=== PATIENT | male | born 1945 | race Caucasian/White ===

== ENCOUNTER 2020-02-29 11:28 | Emergency (ER) | payer OTHER, SELFPAY ==
[2020-02-29 11:35] VITALS: BP 138/100; PULSE 95; RESP 18; TEMP 36.8; O2SAT 98
[2020-02-29 11:59] LABS: Glucose Point of Care 482 (65-105)
--- NOTE | 2020-02-29 11:59 | ED.GENADULT ---
HPI - General Adult General Chief complaint: Recheck/Abnormal Lab/Rx Stated complaint: elevated blood sugar Time Seen by Provider: 02/29/20 11:32 Source: RN notes reviewed History of Present Illness HPI narrative: Patient presents emergency department from home for blood sugar. Patient states he does not have a history of diabetes. He had gone to see his knockout machine operator yesterday and blood work been drawn that showed an elevated blood sugar over 500. He was called and instructed come to ED for further evaluation. Patient denies any symptoms he denies any fevers or chills chest pain shortness of breath abdominal pain nausea vomiting he does note that he has had some increased thirst Related Data Home Medications Medication Instructions Recorded Confirmed amlodipine 02/29/20 atorvastatin 02/29/20 fenofibrate mg 02/29/20 hydrochlorothiazide 02/29/20 icosapent ethyl [Vascepa] g PO 02/29/20 lisinopril 02/29/20 metoprolol succinate PO 02/29/20 02/29/20 Allergies Allergy/AdvReac Type Severity Reaction Status Date / Time No Known Allergies Allergy Verified 02/29/20 11:45 Review of Systems Review of Systems: Narrative: Gen.: Denies fevers or chills ENT: Denies congestion Respiratory: Denies shortness of breath or cough CV: Denies chest pain or palpitations GI: Denies abdominal pain nausea, emesis or diarrhea denies burning, urgency, frequency or hematuria Musculoskeletal: Denies back pain or muscle pain Neuro: Denies numbness, tingling, weakness or focal weakness Skin: Denies rash Except as documented, all other systems reviewed and negative [facility] Past Medical History Medical History (Updated 02/29/20 @ 14:44 by Anthony Esteves DO) Coronary artery disease Family History Family History (Updated 11/09/15 @ 23:19 by DOCTOR UNKNOWN) Father Family history of diabetes mellitus in first degree relative Mother Family history of diabetes mellitus in first degree relative Sibling Family history of diabetes mellitus in first degree relative Social History Social History Smoking status: Former smoker Second hand tobacco smoke exposure: No Smoking end date: 04/13/06 Alcohol intake: current Gender identity (if verbalized by the patient): Male Exam Narrative: Exam Narrative: APPEARANCE: No acute distress, nontoxic, resting in bed EYES: EOMI HEENT: Normocephalic, atraumatic, OMM RESPIRATORY: No respiratory distress Clear to auscultation bilaterally with no rhonchi wheezing or rales. CARDIOVASCULAR: Regular rate and rhythm without murmurs rubs or gallops. ABDOMINAL: Soft, nontender, nondistended, no rebound or guarding MUSCULOSKELETAl: Moves all extremities. No clubbing, cyanosis or edema. NEURO: Awake and alert. Following commands, speech normal, no focal deficits SKIN:: Warm, dry. No rashes lesions or abrasions PSYCHIATRIC: Normal affect/mood, Course Course Emergency Course: Patient states he has an appointment scheduled with Dr. Gruber tomorrow Called discussed Dr. Gruber presentation and work-up. Discussed appointment tomorrow. This time request patient receive Metformin 1000 mg XR at this time and will recheck tomorrow in right further prescriptions Discussed with patient results of workup and diagnosis. Discussed need for follow-up with primary care, proper use of medication, and reasons to return to the emergency department. Patient understands and agrees to current treatment plan Vital Signs Vital signs: Vital Signs Temperature 98.2 F 02/29/20 11:35 Pulse Rate 95 02/29/20 11:35 Respiratory Rate 18 02/29/20 11:35 Blood Pressure 138/100 H 02/29/20 11:35 Pulse Oximetry 98 02/29/20 11:35 Temperature 98.2 F 02/29/20 11:35 Pulse Rate 78 02/29/20 14:41 Respiratory Rate 16 02/29/20 14:41 Blood Pressure 142/88 H 02/29/20 14:41 Pulse Oximetry 98 02/29/20 14:41 Medical Decision Making Vital S
[2020-02-29 12:04] LABS: Basophils Absolute Auto 0.1 K/mm3 (0.0-0.1); Basophils Percent Auto 0.6 % (0.2-1.2); Eosinophils Absolute Auto 0.2 K/mm3 (0-0.3); Hematocrit 43.2 % (42.0-52.0); Hemoglobin 14.8 g/dL (14.0-18.0); Immature Granulocyte Absolute 0.05 K/mm3 (0.00-0.031); Immature Granulocyte Percent A 0.6 % (0-0.5); Lymphocytes Absolute Auto 1.81 K/mm3 (0.9-3.2); Lymphocytes Percent Auto 22.7 % (18.3-44.2); Mean Corpuscular HGB Conc 34.3 g/dl (32-36); Mean Corpuscular Hemoglobin 29.2 pg (26-34); Mean Corpuscular Volume 85.2 fl (80-100); Monocytes Absolute Auto 0.4 K/mm3 (0.1-0.6); Neutrophils Absolute Auto 5.5 K/mm3 (1.3-6.7); Neutrophils Percent Auto 69.1 % (45.5-73.1); Platelet Count Result 234 k/mm3 (150-375); Red Blood Count 5.07 M/mm3 (4.6-6.20); Red Cell Distribution Width 13.4 % (11.5-14.5)
[2020-02-29 12:07] LABS: Add Urine Microscopic? YES; Appearance Urine Clear (Clear); Bilirubin Urine Negative (Negative); Blood Urine Negative (Negative); Color Urine Yellow (Yellow); Glucose Urine UA 3+ mg/dL (Negative); Ketones Urine Negative (Negative); Leukocyte Esterase Ur Negative LEU/UL (Negative); Mucus Urine Rare /lpf; Nitrate Urine Negative (Negative); Protein Urine Negative (Negative); RBC Urine 0-2 /hpf (0-2); WBC Urine 0-3 /hpf
[2020-02-29 12:15] LABS: Specific Grav Ur 1.035 (1.001-1.035)
[2020-02-29 12:16] LABS: Alanine Aminotransferase 57 U/L (4-50); Albumin Level 4.4 g/dL (3.5-5.1); Alkaline Phosphatase 98 U/L (38-126); Anion Gap 11 mmol/L (8-16); Aspartate Amino Transferase 61 U/L (17-59); Bilirubin,Total 0.8 mg/dL (0.2-1.3); Blood Urea Nitrogen 21 mg/dL (9-20); Calcium 9.4 mg/dL (8.4-10.2); Carbon Dioxide 29 mmol/L (22-30); Chloride 94 mmol/L (98-107); Estimated CRCL calculation 51 ml/min; Estimated Glomerular Filt Rate 59; Glucose 467 mg/dL (75-110); Potassium 4.2 mmol/L (3.4-5.0); Sodium 134 mmol/L (137-145)
[2020-02-29 12:20] LABS: Hemoglobin A1C > 14.0 % (<5.7)
[2020-02-29] MEDS: SODIUM CHLORIDE 0.9% IV 1,000 ML 999 ML IV CONT (12:48)
[2020-02-29 14:24] LABS: Glucose Point of Care 375 (65-105)
[2020-02-29 14:41] VITALS: BP 142/88; PULSE 78; RESP 16; O2SAT 98
[2020-02-29] MEDS: metFORMIN HCL XR 500 MG TAB.SR.24H 1000 MG PO (15:42)
== END 2020-02-29 15:44 | disposition home or self-care (01) ==
PROVIDERS: Emergency Provider Emergency Medicine; PCP Family Medicine
DX: R73.9 Hyperglycemia, unspecified (principal); I25.10 Atherosclerotic heart disease of native coronary artery without angina pectoris
CPT/HCPCS: 36415; 80053; 81001; 82948; 83036; 85025; 96360; 96361; 99283; A9270; J7030

== ENCOUNTER 2022-06-02 09:07 | Outpatient (CLI) | payer OTHER, SELFPAY ==
[2022-06-03 11:06] LABS: Kit Draw Collected
== END 2022-06-02 09:08 | disposition home or self-care (01) ==
LOC: ANHGOSHLAB 09:09
PROVIDERS: PCP Family Medicine; Visit Provider Nurse Practitioner Family
DX: E11.9 Type 2 diabetes mellitus without complications (principal); Z12.5 Encounter for screening for malignant neoplasm of prostate; I10 Essential (primary) hypertension; E78.5 Hyperlipidemia, unspecified
CPT/HCPCS: 36415

== ENCOUNTER 2022-07-14 08:58 | Outpatient (CLI) | payer OTHER, SELFPAY ==
--- NOTE | ~2022-07-14 | US_ITS ---
EXAMINATION: US carotid duplex BI DATE: 07/14/2022 09:38 INDICATION: Left carotid bruit. TECHNIQUE: Grayscale, color Doppler, and pulsed Doppler images of the cervical carotid arteries were obtained. The degree of vessel stenosis is placed in one of the following categories: normal, <50%, 5 0-69%, >=70% but less than near-occlusion, near-occlusion, or total occlusion. Note that percent sten osis relative to normal distal artery lumen diameter is indirectly measured from velocity measurement s as described by Cooper, et al. Radiology 2003; 229:340-346. COMPARISON: None. FINDINGS: RIGHT: The right common carotid artery (CCA) peak systolic velocity (PSV) is 102 cm/s. The right internal ca rotid artery (ICA) PSV is 97 cm/s. The right ICA end-diastolic velocity (EDV) is 21 cm/s. The right I CA/CCA PSV ratio is 1.0. Grayscale and color Doppler images yield an estimate of <50% diameter reduct ion from plaque in the ICA. There is antegrade flow in the right vertebral artery. LEFT: The left CCA PSV is 107 cm/s. The left ICA PSV is 491 cm/s. The left ICA EDV is 55 cm/s. The left ICA /CCA PSV ratio is 4.6. Grayscale and color Doppler images yield an estimate of >=50% diameter reducti on from plaque in the ICA. There is antegrade flow in the left vertebral artery. IMPRESSION: 1. <50% stenosis in the right internal carotid artery. 2. >=70% stenosis in the left internal carotid artery, but less than near occlusion. Reviewed, dictated and finalized at location D. IMPRESSION: 1. <50% stenosis in the right internal carotid artery. 2. >=70% stenosis in the left internal carotid artery, but less than near occlu nemo.
== END 2022-07-14 08:59 | disposition home or self-care (01) ==
PROVIDERS: PCP Family Medicine; Visit Provider Internal Medicine Cardiovascular Disease
DX: R09.89 Other specified symptoms and signs involving the circulatory and respiratory systems (principal); I65.23 Occlusion and stenosis of bilateral carotid arteries
CPT/HCPCS: 93880

== ENCOUNTER 2022-12-01 09:07 | Outpatient (CLI) | payer OTHER, SELFPAY ==
[2022-12-01 11:43] LABS: Basophils Absolute Auto 0.1 K/mm3 (0.0-0.1); Basophils Percent Auto 0.8 % (0.2-1.2); Eosinophils Absolute Auto 0.2 K/mm3 (0-0.3); Eosinophils Percent Auto 2.6 % (0-4.4); Hemoglobin 14.2 g/dL (14.0-18.0); Immature Granulocyte Absolute 0.03 K/mm3 (0.00-0.031); Immature Granulocyte Percent A 0.3 % (0-0.5); Lymphocytes Absolute Auto 1.55 K/mm3 (0.9-3.2); Lymphocytes Percent Auto 17.9 % (18.3-44.2); Mean Corpuscular HGB Conc 31.6 g/dl (32-36); Mean Corpuscular Hemoglobin 27.8 pg (26-34); Mean Corpuscular Volume 88.1 fl (80-100); Mean Platelet Volume 10.4 fl (7.4-10.4); Monocytes Absolute Auto 0.6 K/mm3 (0.1-0.6); Monocytes Percent Auto 7.3 % (2.6-8.5); Neutrophils Absolute Auto 6.2 K/mm3 (1.3-6.7); Neutrophils Percent Auto 71.1 % (45.5-73.1); Platelet Count Result 237 k/mm3 (150-375); Red Blood Count 5.11 M/mm3 (4.6-6.20); Red Cell Distribution Width 13.4 % (11.5-14.5); White Blood Count 8.7 K/mm3 (4.5-10.0)
[2022-12-01 11:54] LABS: Alanine Aminotransferase 41 U/L (6-50); Albumin Level 4.2 g/dL (3.5-5.1); Alkaline Phosphatase 52 U/L (38-126); Anion Gap 4 mmol/L (8-16); Aspartate Amino Transferase 41 U/L (17-59); Bilirubin,Total 0.7 mg/dL (0.2-1.3); Blood Urea Nitrogen 22 mg/dL (9-20); Calcium 9.6 mg/dL (8.4-10.2); Carbon Dioxide 32 mmol/L (22-30); Chloride 100 mmol/L (98-107); Cholesterol 138 mg/dL (0-200); Estimated Glomerular Filt Rate 39; Glucose 127 mg/dL (65-110); HDL Direct 32 mg/dL; Potassium 4.4 mmol/L (3.4-5.0); Sodium 136 mmol/L (137-145); Triglycerides 165 mg/dL (<150)
[2022-12-01 12:05] LABS: Vitamin D 25 Hydroxy 52.5 ng/mL
[2022-12-01 12:09] LABS: LDL Cholesterol Direct 76 mg/dL
[2022-12-01 12:21] LABS: Hemoglobin A1C 6.2 % (<5.7)
== END 2022-12-01 09:08 | disposition home or self-care (01) ==
LOC: ANHGOSHLAB 09:09
PROVIDERS: PCP Family Medicine; Visit Provider Nurse Practitioner Family
DX: Z13.220 Encounter for screening for lipoid disorders (principal); Z13.21 Encounter for screening for nutritional disorder; I10 Essential (primary) hypertension; Z13.29 Encounter for screening for other suspected endocrine disorder; Z13.1 Encounter for screening for diabetes mellitus; Z00.00 Encounter for general adult medical examination without abnormal findings
CPT/HCPCS: 36415; 80053; 80061; 82306; 83036; 84443; 85025

== ENCOUNTER 2023-08-25 10:57 | Outpatient (CLI) | payer OTHER, SELFPAY ==
--- NOTE | ~2023-08-25 | US_ITS ---
EXAMINATION: US carotid duplex BI DATE: 08/25/2023 12:03 INDICATION: Left carotid stenosis TECHNIQUE: Grayscale, color Doppler, and pulsed Doppler images of the cervical carotid arteries were obtained. The degree of vessel stenosis is placed in one of the following categories: normal, <50%, 5 0-69%, >=70% but less than near-occlusion, near-occlusion, or total occlusion. Note that percent sten osis relative to normal distal artery lumen diameter is indirectly measured from velocity measurement s as described by Cooper, et al. Radiology 2003; 229:340-346. COMPARISON: 07/14/2022 FINDINGS: RIGHT: The right common carotid artery (CCA) peak systolic velocity (PSV) is 73 cm/s. The right internal car otid artery (ICA) PSV is 115 cm/s. The right ICA end-diastolic velocity (EDV) is 20 cm/s. The right I CA/CCA PSV ratio is 1.6. Grayscale and color Doppler images yield an estimate of <50% diameter reduct ion from plaque in the ICA. The external carotid artery (ECA) PSV is 206 cm/s. There is antegrade zion w in the right vertebral artery. LEFT: The left CCA PSV is 52 cm/s. The left ICA PSV is 475 cm/s. The left ICA EDV is 73 cm/s. The left ICA/ CCA PSV ratio is 9.1. Grayscale and color Doppler images yield an estimate of >=70% (but less than ne ar occlusion) diameter reduction from plaque in the ICA. The ECA PSV is 136 cm/s. There is antegrade flow in the left vertebral artery. IMPRESSION: 1. <50% stenosis in the right internal carotid artery. 2. >=70% (but less than near occlusion) stenosis in the left internal carotid artery. Reviewed, dictated and finalized at location B. IMPRESSION: 1. <50% stenosis in the right internal carotid artery. 2. >=70% (but less than near occlusion) stenosis in the left internal carotid a rtery.
== END 2023-08-25 10:58 | disposition home or self-care (01) ==
PROVIDERS: PCP Family Medicine; Visit Provider Internal Medicine Cardiovascular Disease
DX: I65.23 Occlusion and stenosis of bilateral carotid arteries (principal)
CPT/HCPCS: 93880

== ENCOUNTER 2024-01-20 08:38 | Outpatient (CLI) | payer OTHER, SELFPAY ==
[2024-01-20 16:49] LABS: Alanine Aminotransferase 52 U/L (6-50); Albumin Level 4.3 g/dL (3.5-5.1); Alkaline Phosphatase 53 U/L (38-126); Anion Gap 7 mmol/L (4-12); Aspartate Amino Transferase 47 U/L (17-59); Bilirubin,Total 0.7 mg/dL (0.2-1.3); Blood Urea Nitrogen 37 mg/dL (9-20); Calcium 9.7 mg/dL (8.4-10.2); Carbon Dioxide 31 mmol/L (22-30); Chloride 100 mmol/L (98-107); Cholesterol 164 mg/dL (0-200); Estimated Glomerular Filt Rate 31; Glucose 162 mg/dL (65-110); HDL Direct 31 mg/dL; Potassium 4.4 mmol/L (3.4-5.0); Sodium 138 mmol/L (137-145); Triglycerides 269 mg/dL (<150)
[2024-01-20 17:00] LABS: LDL Cholesterol Direct 77 mg/dL
[2024-01-20 17:05] LABS: Basophils Absolute Auto 0.1 K/mm3 (0.0-0.1); Basophils Percent Auto 0.8 % (0.2-1.2); Eosinophils Absolute Auto 0.3 K/mm3 (0-0.3); Eosinophils Percent Auto 4.3 % (0-4.4); Hematocrit 42.7 % (42.0-52.0); Hemoglobin 13.6 g/dL (14.0-18.0); Immature Granulocyte Absolute 0.05 K/mm3 (0.00-0.031); Immature Granulocyte Percent A 0.6 % (0-0.5); Lymphocytes Absolute Auto 1.73 K/mm3 (0.9-3.2); Lymphocytes Percent Auto 21.9 % (18.3-44.2); Mean Corpuscular HGB Conc 31.9 g/dl (32-36); Mean Corpuscular Hemoglobin 29.1 pg (26-34); Mean Corpuscular Volume 91.4 fl (80-100); Mean Platelet Volume 10.4 fl (7.4-10.4); Monocytes Absolute Auto 0.6 K/mm3 (0.1-0.6); Monocytes Percent Auto 7.1 % (2.6-8.5); Neutrophils Absolute Auto 5.2 K/mm3 (1.3-6.7); Neutrophils Percent Auto 65.3 % (45.5-73.1); Platelet Count Result 224 k/mm3 (150-375); Red Blood Count 4.67 M/mm3 (4.6-6.20); White Blood Count 7.9 K/mm3 (4.5-10.0)
[2024-01-20 17:15] LABS: Vitamin D 25 Hydroxy 53.7 ng/mL
[2024-01-20 17:17] LABS: Prostate Specific Antigen 4.2 ng/mL (< OR = 4.0)
[2024-01-20 17:18] LABS: Creatinine Urine 119.4 mg/dL
[2024-01-20 17:36] LABS: Hemoglobin A1C 7.1 % (<5.7)
[2024-01-20 17:39] LABS: MALB Creatinine Ratio 326.9 mg/g (0-30); Microalbumin Urine Random 390.3 mg/L (0-16.7)
[2024-01-20 20:50] LABS: Total Triiodothyronine (T3) 1.38 NG/ML (0.97-1.69)
== END 2024-01-20 08:39 | disposition home or self-care (01) ==
LOC: ANHGOSHLAB 08:39
PROVIDERS: PCP Family Medicine; Visit Provider Nurse Practitioner Family
DX: Z12.5 Encounter for screening for malignant neoplasm of prostate (principal); E78.5 Hyperlipidemia, unspecified; E11.9 Type 2 diabetes mellitus without complications; I10 Essential (primary) hypertension; E55.9 Vitamin D deficiency, unspecified
CPT/HCPCS: 36415; 80053; 80061; 82043; 82306; 83036; 84153; 84439; 84443; 84480; 85025; G0103

== ENCOUNTER 2024-08-02 08:42 | Outpatient (CLI) | payer OTHER, SELFPAY ==
--- OUTSIDE RECORDS SUMMARY | 2024-08-02 09:08 | XMS_ITS | Encounter Summary ---
Author Organization [facility] Address [address] [place] [address] Care Team Providers Care Truck Shop Mechanic Name Role Phone Skylar Restrepo MD Primary Care Provider +1- [phone] Skylar Restrepo MD Primary Care Provider +1- [phone] Jaylen Aguilar MD Primary Care Provider +1- [phone] Shreya Kearney MD Primary Care Provider Dede Gruber MD Primary Care Provider Dede Gruber MD Primary Care Provider Encounter Details Date Type Department Care Team (Late st Contact Info) Description 03/03/2008 Orders Only [facility] Health Information Management [address] [place] [address] Scanning, Provider Social History Tobacco Use Types Packs/Day Years Used Date Smoking Tobacco: Never Assessed Sex and Gender Information Value Date Recorded Sex Assigned at Not on file 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 Gender Identity Not on file Sexual Orientation Not on file documented as of this encounter Plan of Treatment Not on file documented as of this encounter Procedures Procedure Name Priority Date/Time Associated Diagnosis Comments SCAN - RADIOLOGY/IMAGING 03/03/2008 SCAN - LABS 03/03/2008 documented in this encounter Results * SCAN - LABS (03/03/2008) us Provider Scanning Final Result * SCAN - RADIOLOGY/IMAGING (03/03/2008) Anatomical Region Laterality Modality Other us Provider Scanning Final Result documented in this encounter Visit Diagnoses Not on filedocumented in this encounter Care Teams Truck Shop Mechanic Relationship Specialty Start Date End Date Skylar Restrepo MD PCP - General 01/18/10 03/25/17 Skylar Restrepo MD PCP - General 03/15/08 01/17/10 Jaylen Aguilar MD [address] [place] [address] PCP - General Family Practice 03/26/17 02/15/19 Shreya Kearney MD [address] [place] [address] PCP - General Family Medicine 02/16/19 02/27/20 Dede Gruber MD [address] [place] [address] PCP - General Family Practice 02/28/20 03/10/24 Dede Gruber MD [address] [place] [address] [address] PCP - General Family Practice 03/11/24 documented as of this encounter
--- OUTSIDE RECORDS SUMMARY | 2024-08-02 09:08 | XMS_ITS | Encounter Summary ---
Author Organization [facility] Address [address] [place] [address] Care Team Providers Care Screener Perfumer Name Role Phone Skylar Restrepo MD Primary Care Provider +1- [phone] Jaylen Aguilar MD Primary Care Provider +1- [phone] Shreya Kearney MD Primary Care Provider Dede Gruber MD Primary Care Provider Dede Gruber MD Primary Care Provider Encounter Details Date Type Department Care Team (Late st Contact Info) Description 05/14/2016 Orders Only [facility] ProviderLesly MD [address] [place] [address] Social History Tobacco Use Types Packs/Day Years Used Date Smoking Tobacco: Former Cigarettes Q uit: 04/13/2007 Alcohol Use Standard Drinks/Week Comments Yes 0 (1 standard drink = 0.6 oz pur e alcohol) Sex and Gender Information Value Date Recorded Sex Assigned at Not on file 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 Historical Provider [facility] CARDI[facility] SERVICES NAVEEN SCHNEIDER Final Result documented in this encounter Visit Diagnoses Not on filedocumented in this encounter Care Teams Screener Perfumer Relationship Specialty Start Date End Date Skylar Restrepo MD PCP - General 01/18/10 03/25/17 Jaylen Aguilar MD [address] [place] [address] PCP - General Family Practice 03/26/17 02/15/19 Shreya Kearney MD [address] [place] [address] PCP - General Family Medicine 02/16/19 02/27/20 Dede Gruber MD [address] [place] [address] PCP - General Family Practice 02/28/20 03/10/24 Dede Gruber MD [address] [id number] PCP - General Family Practice 03/11/24 documented as of this encounter
--- OUTSIDE RECORDS SUMMARY | 2024-08-02 09:08 | XMS_ITS | Clinical Summary ---
Author Organization [facility] [address] Address [address] [place] [address] Care Team Providers Care Oracle Erp Architect Name Role Phone Dede Gruber MD Primary Care Provider Allergies No known active allergies Medications cholecalciferol (cholecalciferol ) 1,000 unit tablet take 1 by Oral route every day 0 2 Active aspirin (ENTERIC COATED ASPIRIN) 81 mg tablet take 1 tablet (81MG) by oral route every day 0 0 8 Active metFORMIN (GLUCOPHAGE) 1,000 mg tablet Take 1 tablet (1,000 mg total) by mouth 2 (two) times a day 1 Active nitroglycerin (Nitrostat) 0.[address] 1 tablet (0.4 mg total) under the tongue every 5 (five) minutes as needed for chest pain 25 tablet 3 4 Active sildenafiL (VIAGRA) 50 mg tablet Take 1 tablet (50 mg total) by mouth daily as needed for erectile dysfunction Active fenofibrate (TRIGLIDE) 160 mg tabletIndication s:Dyslipidemia TAKE 1 TABLET BY MOUTH EVERY DAY 90 tablet 3 4 Active atorvastatin (LIPITOR) 80 mg tablet TAKE 1 TABLET BY MOUTH EVERY DAY 90 tablet 2 4 Active amLODIPine (NORVASC) 5 mg tabletIndication s:Essential hypertension TAKE 1 TABLET BY MOUTH EVERY DAY 90 tablet 2 4 Active metoprolol XL (TOPROL-XL) 50 mg extended release tablet TAKE 1 TABLET BY MOUTH EVERY DAY 90 tablet 2 4 Active Jardiance 10 mg tablet Take 1 tablet (10 mg total) by mouth daily 4 Active ALPRAZolam (XANAX) 0.25 mg tablet Take 0.125 tablets by mouth nightly as needed 4 Active furosemide (LASIX) 20 mg tabletIndication s:Swelling of lower extremity TAKE 1 TABLET BY MOUTH DAILY NEEDED (SWELLING). 90 tablet 3 4 Active lisinopriL (PRINIVIL,ZESTRI L) 10 mg tablet Take 1 tablet (10 mg total) by mouth daily 90 tablet 3 4 Active hydroCHLOROthiaz lizzie (MICROZIDE) 12.5 mg capsule TAKE 2 CAPSULES BY MOUTH EVERY DAY 180 capsule 2 5 Active Active Problems Problem Noted Date Diagnosed Date Left carotid stenosis 02/04/2023 Swelling of lower extremity 2022 Left carotid bruit 03/12/2021 Hypertriglyceridemia 02/16/2019 Heartburn 07/02/2018 Coronary artery disease invo lving [place] coronary artery of [place] heart 03/26/2017 Ischemic cardiomyopathy 03/26/2017 Essential hypertension 03/26/2017 Hyperlipidemia LDL goal <70 03/26/2017 Anxiety 03/26/2017 Elevated LFTs 03/26/2017 Medical History Medical History Date Comments Hx Other Medical Myocardial Infa rction - VF Osteoarthritis Osteoarthritis Adiposity Obesity Family History Medical History Relation Name Comments Diabetes Father 2 Diabetes mellit ; Cause of : Diabetes mellitus Other Mother 2 Alive and well; Relation Name Status Comments Father 1 (Age 80) Father 2 Mother 1 Alive Mother 2 Social History Tobacco Use Types Packs/Day Years Used Date Smoking Tobacco: Former Cigarettes Q uit: 02/24/2007 Smokeless Tobacco: Never Alcohol Use Standard Drinks/Week Comments No 0 (1 standard drink = 0.6 oz pur e alcohol) Sex and Gender Information Value Date Recorded Sex Assigned at Not on file Legal Sex Male 9:17 AM STEAMSHIP AGENT Gender Identity Not on file Sexual Orientation Not on file Obstetrics History Last Filed Vital Signs Vital Sign Reading Time Taken Comments Blood Pressure 136/70 03/11/2024 8:05 AM STEAMSHIP AGENT Pulse 66 03/11/2024 8:05 AM STEAMSHIP AGENT Temperature - - Respiratory Rate - - Oxygen Saturation 97% 03/11/2024 8:05 AM STEAMSHIP AGENT Inhaled Oxygen Concentration - - Weight 101.6 kg (224 lb) 03/11/2024 8:05 AM STEAMSHIP AGENT Height 177.8 cm (5' 10 ) 03/11/2024 8:05 AM STEAMSHIP AGENT Body Mass Index 32.14 03/11/2024 8:05 AM STEAMSHIP AGENT Plan of Treatment Health Maintenance Due Date Last Done Comments Depression Screening 1945 Fall Risk Assessment 1945 Hepatitis C Screening 1945 DTaP/Tdap/Td Vaccine (1 - Tdap) 1957 Hepatitis B Screening 1964 Zoster Vaccine (1 of 2) 1996 Abdominal Aortic Aneurysm (AAA) Screen 07/10/2011 Well Visit 65+ 07/10/2011 Pneumococcal vaccine 65+ (2 of 2 - PCV) 04/13/2016 0 04/13/2015, 04/13/2007 Influenza Vaccine (Season Ended) 2024 Insurance HEALTHCARE Care Teams Oracle Erp Architect Relationship Specialty Start Date End Date Dede Gruber MD [address] [facility] [address] [place] [address] PCP - General Family Practice 03/11/24
--- OUTSIDE RECORDS SUMMARY | 2024-08-02 09:08 | XMS_ITS | Referral Summary ---
Author Organization [facility] [address] Address [address] [place] [address] Care Team Providers Care Personal Injury Litigation Paralegal Name Role Phone Dede Gruber MD Primary [...] Heartburn 07/02/2018 Coronary artery disease invo lving [place] coronary artery of [place] heart 03/26/2017 Ischemic cardiomyopathy 03/26/2017 Essential hypertension 03/26/2017 Hyperlipidemia LDL goal <70 03/26/2017 Anxiety 03/26/2017 Elevated LFTs 03/26/2017 Social History Tobacco Use Types Packs/Day Years Used Date Smoking Tobacco: Former Cigarettes Q uit: 02/24/2007 Smokeless Tobacco: Never Alcohol Use Standard Drinks/Week Comments No 0 (1 standard drink = 0.6 oz pur e alcohol) Sex and Gender Information Value Date Recorded Sex Assigned at Not on file Legal Sex Male 9:17 AM ASSISTANT STATISTICIAN Gender Identity Not on file Sexual Orientation Not on file Last Filed Vital Signs Vital Sign Reading Time Taken Comments Blood Pressure 136/70 03/11/2024 8:05 AM ASSISTANT STATISTICIAN Pulse 66 03/11/2024 8:05 AM ASSISTANT STATISTICIAN Temperature - - Respiratory Rate - - Oxygen Saturation 97% 03/11/2024 8:05 AM ASSISTANT STATISTICIAN Inhaled Oxygen Concentration - - Weight 101.6 kg (224 lb) 03/11/2024 8:05 AM ASSISTANT STATISTICIAN Height 177.8 cm (5' 10 ) 03/11/2024 8:05 AM ASSISTANT STATISTICIAN Body Mass Index 32.14 03/11/2024 8:05 AM ASSISTANT STATISTICIAN Plan of Treatment Not on file [place] [address] [address] [facility] Member Subscriber Plan / Payer (Ef fective 2013-Present) Name:ANA M GUARDADO Samir Relation to Subscriber:Self Name:Ana M Guardado Samir Payer ID:[id number] (NAIC) Type:MEDICARE RISK OTHER Address: [address] [place] [id number] Care Teams Personal Injury Litigation Paralegal Relationship Specialty Start Date End Date Dede Gruber MD [address] [address] PCP - General Family Practice 03/11/24
--- OUTSIDE RECORDS SUMMARY | 2024-08-02 09:08 | XMS_ITS | Encounter Summary ---
Author Organization [facility] Address [address] [place] [address] Care Team Providers Care Hospice Office Coordinator Name Role Phone Skylar Restrepo MD Primary Care Provider +1- [phone] Jaylen Aguilar MD Primary Care Provider +1- [phone] Shreya Kearney MD Primary Care Provider Dede Gruber MD Primary Care Provider Dede Gruber MD Primary Care Provider Encounter Details Date Type Department Care Team (Late st Contact Info) Description 04/22/2016 Orders Only [facility] ProviderLesly MD [address] [place] [address] Social History Tobacco Use Types Packs/Day Years Used Date Smoking Tobacco: Former Cigarettes Q uit: 04/13/2007 Alcohol Use Standard Drinks/Week Comments Yes 0 (1 standard drink = 0.6 oz pur e alcohol) Sex and Gender Information Value Date Recorded Sex Assigned at Not on file 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 Historical Provider [facility] C[facility] NAVEEN SCHNEIDER Final Result documented in this encounter Visit Diagnoses Not on filedocumented in this encounter Care Teams Hospice Office Coordinator Relationship Specialty Start Date End Date Skylar Restrepo MD PCP - General 01/18/10 03/25/17 Jaylen Aguilar MD [address] [place] [address] PCP - General Family Practice 03/26/17 02/15/19 Shreya Kearney MD [address] [place] [address] PCP - General Family Medicine 02/16/19 02/27/20 Dede Gruber MD [address] [place] [address] PCP - General Family Practice 02/28/20 03/10/24 Dede Gruber MD [address] [id number] PCP - General Family Practice 03/11/24 documented as of this encounter
[2024-08-02 11:06] LABS: Basophils Absolute Auto 0.1 K/mm3 (0.0-0.1); Basophils Percent Auto 0.6 % (0.2-1.2); Eosinophils Absolute Auto 0.3 K/mm3 (0-0.3); Eosinophils Percent Auto 3.3 % (0-4.4); Immature Granulocyte Absolute 0.06 K/mm3 (0.00-0.031); Immature Granulocyte Percent A 0.6 % (0-0.5); Lymphocytes Absolute Auto 2.05 K/mm3 (0.9-3.2); Lymphocytes Percent Auto 21.7 % (18.3-44.2); Mean Corpuscular HGB Conc 31.1 g/dl (32-36); Mean Corpuscular Hemoglobin 27.5 pg (26-34); Mean Corpuscular Volume 88.4 fl (80-100); Mean Platelet Volume 10.2 fl (7.4-10.4); Monocytes Absolute Auto 0.6 K/mm3 (0.1-0.6); Monocytes Percent Auto 6.8 % (2.6-8.5); Neutrophils Absolute Auto 6.3 K/mm3 (1.3-6.7); Platelet Count Result 221 k/mm3 (150-375); Red Blood Count 5.09 M/mm3 (4.6-6.20); Red Cell Distribution Width 14.6 % (11.5-14.5); White Blood Count 9.4 K/mm3 (4.5-10.0)
[2024-08-02 11:33] LABS: Alanine Aminotransferase 48 U/L (6-50); Albumin Level 4.4 g/dL (3.5-5.1); Alkaline Phosphatase 53 U/L (38-126); Anion Gap 10 mmol/L (4-12); Aspartate Amino Transferase 41 U/L (17-59); Bilirubin,Total 0.7 mg/dL (0.2-1.3); Blood Urea Nitrogen 36 mg/dL (9-20); Calcium 9.4 mg/dL (8.4-10.2); Carbon Dioxide 30 mmol/L (22-30); Chloride 99 mmol/L (98-107); Cholesterol 152 mg/dL (0-200); Estimated Glomerular Filt Rate 32; Glucose 143 mg/dL (65-110); HDL Direct 32 mg/dL; Potassium 4.3 mmol/L (3.4-5.0); Sodium 139 mmol/L (137-145); Triglycerides 273 mg/dL (<150)
[2024-08-02 11:44] LABS: LDL Cholesterol Direct 67 mg/dL
[2024-08-02 11:57] LABS: Creatinine Urine 103.2 mg/dL
[2024-08-02 12:04] LABS: MALB Creatinine Ratio 110.5 mg/g (0-30)
[2024-08-02 12:06] LABS: Vitamin D 25 Hydroxy 57.2 ng/mL
== END 2024-08-02 08:43 | disposition home or self-care (01) ==
LOC: ANHGOSHLAB 08:43
PROVIDERS: PCP Family Medicine; Visit Provider Nurse Practitioner Family
DX: E78.5 Hyperlipidemia, unspecified (principal); I10 Essential (primary) hypertension; E11.9 Type 2 diabetes mellitus without complications; E55.9 Vitamin D deficiency, unspecified
CPT/HCPCS: 36415; 80053; 80061; 82043; 82306; 83036; 85025

== ENCOUNTER 2024-09-13 07:22 | Outpatient (CLI) | payer OTHER, SELFPAY ==
--- NOTE | ~2024-09-13 | US_ITS ---
EXAMINATION: US carotid duplex BI DATE: 09/13/2024 08:23 INDICATION: Left carotid stenosis TECHNIQUE: Grayscale, color Doppler, and pulsed Doppler images of the cervical carotid arteries were obtained. The degree of vessel stenosis is placed in one of the following categories: normal, <50%, 5 0-69%, >=70% but less than near-occlusion, near-occlusion, or total occlusion. Note that percent sten osis relative to normal distal artery lumen diameter is indirectly measured from velocity measurement s as described by Cooper, et al. Radiology 2003; 229:340-346. Notes: Normal: Peak systolic velocity <125 centimeters/sec and no plaque <50%. Peak systolic velocity <125 ( EDV <40; ICA/CCA PSV ratio <2.0; used these factors only a tandem lesions or low cardiac output or co ntralateral disease) 50-69 %: PSV 125-230 (EDV 40-100; ratio 2-4) >= 70% but less than near occlusion: PSV greater than 230 (EDV > 100; ratio> 4.0) Near Occlusion: PSV that is variable; markedly narrowed lumen Occlusion: Absent flow on color/spectral Doppler and no lumen on reyes scale. COMPARISON: None. FINDINGS: RIGHT: The right common carotid artery (CCA) peak systolic velocity (PSV) is 108 cm/s. The right internal ca rotid artery (ICA) PSV is 108 cm/s. The right ICA end-diastolic velocity (EDV) is 20 cm/s. The right ICA/CCA PSV ratio is 1.0. The external carotid artery (ECA) PSV is 134 cm/s. There is antegrade flow in the right vertebral artery. LEFT: The left CCA PSV is 59 cm/s. The left ICA PSV is 55 cm/s. The left ICA EDV is 6.0 cm/s. The left ICA/ CCA PSV ratio is 0.9. The ECA PSV is 144 cm/s. There is antegrade flow in the left vertebral artery. IMPRESSION: 1. Less than 50% stenosis in the right internal carotid artery by sonographic criteria. 2. Less than 50% stenosis in the left internal carotid artery by sonographic criteria. Reviewed, dictated and finalized at location A. IMPRESSION: 1. Less than 50% stenosis in the right internal carotid artery by sonographic cheryl zamudio. 2. Less than 50% stenosis in the left internal carotid artery by sonographic kashif jules.
--- OUTSIDE RECORDS SUMMARY | 2024-09-13 07:30 | XMS_ITS | Encounter Summary ---
Author Organization [facility] Address [address] [place] [address] Care Team Providers Care Alternative Energy Technician Name Role Phone Skylar Restrepo MD Primary Care Provider +1- [phone] Jaylen Aguilar MD Primary Care Provider +1- [phone] Shreya Kearney MD Primary Care Provider Dede Gruber MD Primary Care Provider Dede Gruber MD Primary Care Provider Encounter Details Date Type Department Care Team (Late st Contact Info) Description 05/14/2016 Orders Only [facility] ProviderLesly MD [address] [place] [address] Social History Tobacco Use Types Packs/Day Years Used Date Smoking Tobacco: Former Cigarettes Q uit: 04/13/2007 Alcohol Use Standard Drinks/Week Comments Yes 0 (1 standard drink = 0.6 oz pur e alcohol) Sex and Gender Information Value Date Recorded Sex Assigned at Not on file Legal Sex Male 9:17 AM CLINICAL LABORATORY TECHNICIAN Gender Identity Not on file Sexual Orientation Not on file documented as of this encounter Plan of Treatment Not on file documented as of this encounter Procedures Procedure Name Priority Date/Time Associated Diagnosis Comments CARDIOLOGY REPORT 05/14/2016 documented in this encounter Results * CARDIOLOGY REPORT (05/14/2016) Anatomical Region Laterality Modality Other Narrative 05/14/2016 Ordered by an unspecified provider. Historical Provider [facility] PROCE MELINDAES Final Result documented in this encounter Visit Diagnoses Not on filedocumented in this encounter Care Teams Alternative Energy Technician Relationship Specialty Start Date End Date Skylar Restrepo MD PCP - General 01/18/10 03/25/17 Jaylen Aguilar MD [address] [place] [address] PCP - General Family Practice 03/26/17 02/15/19 Shreya Kearney MD [address] [place] [address] PCP - General Family Medicine 02/16/19 02/27/20 Dede Gruber MD [address] [place] [address] PCP - General Family Practice 02/28/20 03/10/24 Dede Gruber MD [facility] [facility] [address] [place], [place] [id number] PCP - General Family Practice 03/11/24 documented as of this encounter
--- OUTSIDE RECORDS SUMMARY | 2024-09-13 07:30 | XMS_ITS | Encounter Summary ---
Author Organization [facility] Address [address] [place] [address] Care Team Providers Care Mattress Spring Encaser Name Role Phone Skylar Restrepo MD Primary Care Provider +1- [phone] Skylar Restrepo MD Primary Care Provider +1- [phone] Jaylen Aguilar MD Primary Care Provider +1- [phone] Shreya Kearney MD Primary Care Provider Dede Gruber MD Primary Care Provider Dede Gruber MD Primary Care Provider Encounter Details Date Type Department Care Team (Late st Contact Info) Description 03/03/[address] [facility] Health Information Management [address] [place] [address] Scanning, Provider Social History Tobacco Use Types Packs/Day Years Used Date Smoking Tobacco: Never Assessed Sex and Gender Information Value Date Recorded Sex Assigned at Not on file Legal Sex Male 9:17 AM CUSTOMER SERVICE CONSULTANT Gender Identity Not on file Sexual Orientation [...] on filedocumented in this encounter Care Teams Mattress Spring Encaser Relationship Specialty Start Date End Date Skylar Restrepo MD PCP - General 01/18/10 03/25/17 Skylar Restrepo MD PCP - General 03/15/08 01/17/10 Jaylen Aguilar MD [address] [place] [address] PCP - General Family Practice 03/26/17 02/15/19 Shreya Kearney MD [address] [place] [address] PCP - General Family Medicine 02/16/19 02/27/20 Dede Gruber MD [address] [place] [address] PCP - General Family Practice 02/28/20 03/10/24 Dede Gruber MD [address] [place] [address] [address] [place], [place] [id number] PCP - General Family Practice 03/11/24 documented as of this encounter
--- OUTSIDE RECORDS SUMMARY | 2024-09-13 07:30 | XMS_ITS | Encounter Summary ---
Author Organization [facility] Address [address] [place] [address] Care Team Providers Care Supervisor Assembling Name Role Phone Skylar Restrepo MD Primary Care Provider +1- [phone] Jaylen Aguilar MD Primary Care Provider +1- [phone] Shreya Kearney MD Primary Care Provider Dede Gruber MD Primary Care Provider Dede Gruber MD Primary Care Provider Encounter Details Date Type Department Care Team (Late st Contact Info) Description 04/22/2016 [facility] Only [facility] ProviderLesly MD [address] [place] [address] Social History Tobacco Use Types Packs/Day Years Used Date Smoking Tobacco: Former Cigarettes Q uit: 04/13/2007 Alcohol Use Standard Drinks/Week Comments Yes 0 (1 standard drink = 0.6 oz pur e alcohol) Sex and Gender Information Value Date Recorded Sex Assigned at Not on file 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 Gender Identity Not on file Sexual [...] on filedocumented in this encounter Care Teams Supervisor Assembling Relationship Specialty Start Date End Date Skylar Restrepo MD PCP - General 01/18/10 03/25/17 Jaylen Aguilar MD [address] [place] [address] PCP - General Family Practice 03/26/17 02/15/19 Shreya Kearney MD [address] [place] [address] PCP - General Family Medicine 02/16/19 02/27/20 Dede Gruber MD [address] [place] [address] PCP - General Family Practice 02/28/20 03/10/24 Dede Gruber MD [facility] [address] [place], [place] [id number] PCP - General Family Practice 03/11/24 documented as of this encounter
--- OUTSIDE RECORDS SUMMARY | 2024-09-13 07:31 | XMS_ITS | Clinical Summary ---
Author Organization [facility] [address] Address [address] [place] [address] Care Team Providers Care Paste Mixing Supervisor Name Role Phone Dede Gruber MD Primary Care Provider Allergies No known active allergies Medications cholecalciferol (cholecalcifero l) 1,000 unit tablet take 1 by Oral route every day 0 12/11/19 12 Active aspirin (ENTERIC COATED ASPIRIN) 81 mg tablet take 1 tablet (81MG) by oral route every day 0 0 03/08/20 08 Active metFORMIN (GLUCOPHAGE) 1,000 mg tablet Take 1 tablet (1,000 mg total) by mouth 2 (two) times a day 08/06/19 21 Active nitroglycerin (Nitrostat) 0.[address] 1 tablet (0.4 mg total) under the tongue every 5 (five) minutes as needed for chest pain 25 tablet 3 05/20/19 24 Active sildenafiL (VIAGRA) 50 mg tablet Take 1 tablet (50 mg total) by mouth daily as needed for erectile dysfunction Active fenofibrate (TRIGLIDE) 160 mg tabletIndicatio ns:Dyslipidemia TAKE 1 TABLET BY MOUTH EVERY DAY 90 tablet 3 12/10/19 24 Active Jardiance 10 mg tablet Take 1 tablet (10 mg total) by mouth daily 01/29/20 24 Active ALPRAZolam (XANAX) 0.25 mg tablet Take 0.125 tablets by mouth nightly as needed 01/20/20 24 Active furosemide (LASIX) 20 mg tabletIndicatio ns:Swelling of lower extremity TAKE 1 TABLET BY MOUTH DAILY NEEDED (SWELLING). 90 tablet 3 03/28/20 24 Active lisinopriL (PRINIVIL,ZESTR IL) 10 mg tablet Take 1 tablet (10 mg total) by mouth daily 90 tablet 3 03/28/20 24 Active hydroCHLOROthia zide (MICROZIDE) 12.5 mg capsule TAKE 2 CAPSULES BY MOUTH EVERY DAY 180 capsule 2 06/24/19 25 Active amLODIPine (NORVASC) 5 mg tabletIndicatio ns:Essential hypertension TAKE 1 TABLET BY MOUTH EVERY DAY 90 tablet 09/07/19 25 Active atorvastatin (LIPITOR) 80 mg tablet TAKE 1 TABLET BY MOUTH EVERY DAY 90 tablet 09/07/19 25 Active metoprolol XL (TOPROL-XL) 50 mg extended release tablet TAKE 1 TABLET BY MOUTH EVERY DAY 90 tablet 09/07/19 25 Active atorvastatin (LIPITOR) 80 mg tablet TAKE 1 TABLET BY MOUTH EVERY DAY 90 tablet 2 12/24/19 24 025 Discontinued amLODIPine (NORVASC) 5 mg tabletIndicatio ns:Essential hypertension TAKE 1 TABLET BY MOUTH EVERY DAY 90 tablet 2 12/24/19 24 025 Discontinued metoprolol XL (TOPROL-XL) 50 mg extended release tablet TAKE 1 TABLET BY MOUTH EVERY DAY 90 tablet 2 12/24/19 24 025 Discontinued Active Problems Problem Noted Date Diagnosed Date Left carotid stenosis 02/04/2023 Swelling of lower extremity 2022 Left carotid bruit 03/12/2021 Hypertriglyceridemia 02/16/2019 Heartburn 07/02/2018 Coronary artery disease invo lving [place] coronary artery of [place] heart 03/26/2017 Ischemic cardiomyopathy 03/26/2017 Essential hypertension 03/26/2017 Hyperlipidemia LDL goal <70 03/26/2017 Anxiety 03/26/2017 Elevated LFTs 03/26/2017 Medical History Medical History Date Comments Hx Other Medical Myocardial Infa rction - VF Osteoarthritis Osteoarthritis Adiposity Obesity Family History Medical History Relation Name Comments Diabetes Father 2 Diabetes mellit us; Cause of : Diabetes mellitus Other Mother [...] on file 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.] 04/13/2007 Influenza Vaccine (Season Ended) 2024 Insurance [facility] Care Teams Paste Mixing Supervisor Relationship Specialty Start Date End Date Dede Gruber MD [address] [facility] [address] [place] [address] PCP - General Family Practice 03/11/24
--- OUTSIDE RECORDS SUMMARY | 2024-09-13 07:31 | XMS_ITS | Referral Summary ---
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 Gender Identity Not on file Sexual Orientation Not on file Last Filed Vital Signs Vital Sign Reading Time Taken Comments Blood Pressure 136/70 03/11/2024 8:05 AM PUBLIC SPEAKING INSTRUCTOR Pulse 66 03/11/2024 8:05 AM PUBLIC SPEAKING INSTRUCTOR Temperature - - Respiratory Rate - - Oxygen Saturation 97% 03/11/2024 8:05 AM PUBLIC SPEAKING INSTRUCTOR Inhaled Oxygen Concentration - - Weight 101.6 kg (224 lb) 03/11/2024 8:05 AM PUBLIC SPEAKING INSTRUCTOR Height 177.8 cm (5' 10) 03/11/2024 8:05 AM PUBLIC SPEAKING INSTRUCTOR Body Mass Index 32.14 03/11/2024 8:05 AM PUBLIC SPEAKING INSTRUCTOR Plan of Treatment Not on file Insurance HEALTHCARE Member Subscriber Plan / Payer (Ef fective 2013-Present) Name:ANA M GUARDADO Relation to Subscriber:Self Name:Ana M Guardado Payer ID:[id number] (NAIC) Type:MEDICARE RISK OTHER Address: [place] [id number] [facility] Care Teams Corrosion Control Specialist Relationship Specialty Start Date End Date Dede Gruber MD [address] [facility] [address] [address] PCP - General Family Practice 03/11/24
== END 2024-09-13 07:23 | disposition home or self-care (01) ==
PROVIDERS: PCP Family Medicine; Visit Provider Internal Medicine Cardiovascular Disease
DX: I65.23 Occlusion and stenosis of bilateral carotid arteries (principal)
CPT/HCPCS: 93880

== ENCOUNTER 2025-02-06 08:43 | Outpatient (CLI) | payer OTHER, SELFPAY ==
--- OUTSIDE RECORDS SUMMARY | 2025-02-06 09:12 | XMS_ITS | Clinical Summary ---
Author Organization [facility] [address] Address [address] [place] [address] Care Team Providers Care Delicatessen Goods Stock Clerk Name Role Phone Dede Gruber MD Primary [...] daily as needed for erectile dysfunction Active Jardiance 10 mg tablet Take 1 [...] EVERY DAY 180 capsule 2 5 Active metoprolol XL (TOPROL-XL) 50 mg extended release tablet TAKE 1 TABLET BY MOUTH EVERY DAY 90 tablet 5 Active amLODIPine (NORVASC) 5 mg tabletIndication s:Essential hypertension TAKE 1 TABLET BY MOUTH EVERY DAY 90 tablet 5 Active fenofibrate (TRIGLIDE) 160 mg tabletIndication s:Dyslipidemia TAKE 1 TABLET BY MOUTH EVERY DAY 90 tablet 3 5 Active atorvastatin (LIPITOR) 80 mg tablet TAKE 1 TABLET BY MOUTH EVERY DAY 90 tablet 5 Active Active Problems Problem Noted Date Diagnosed Date Left carotid stenosis 02/04/2023 Swelling of lower extremity 2022 Left carotid bruit 03/12/2021 Hypertriglyceridemia 02/16/2019 Heartburn 07/02/2018 Coronary artery disease invo lving [place] coronary artery of [place] heart 03/26/2017 Ischemic cardiomyopathy 03/26/2017 Hypertension associated with diabetes 03/26/2017 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 ellitus 03/26/2017 Anxiety 03/26/2017 Elevated LFTs 03/26/2017 Medical [...] on file 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 Gender Identity Not on file Sexual Orientation Not on file Obstetrics History Last Filed Vital Signs Vital Sign Reading Time Taken Comments Blood Pressure 130/62 10/04/2024 7:46 AM CDT Pulse 94 10/04/2024 7:46 AM CDT Temperature - - Respiratory Rate 16 10/04/2024 7:46 AM CDT Oxygen Saturation 96% 10/04/2024 7:46 AM CDT Inhaled Oxygen Concentration - - Weight 101.6 kg (224 lb) 10/04/2024 7:46 AM CDT Height 177.8 cm (5' 10) 10/04/2024 7:46 AM CDT Body Mass Index 32.14 10/04/2024 7:46 AM CDT Plan of Treatment Health Maintenance Due Date Last Done Comments Albumin Creatinine Ratio, Urine 1946 Depression Screening 1946 Fall Risk Assessment 1946 Hemoglobin A1C 1946 Hepatitis C Screening 1946 Dilated Eye Exam 1946 Foot Exam 1946 DTaP/Tdap/Td Vaccine (1 - Tdap) 1957 Hepatitis B Screening 1964 Zoster Vaccine (1 of 2) 1996 Abdominal Aortic Aneurysm (A AA) Screen 07/10/2011 Well Visit 65+ 07/10/2011 Pneumococcal vaccine 65+ (2 of 2 - PCV) 04/13/2016 04/13/2015, 04/13/2007 eGFR 04/08/2020 04/08/2019, 04/03/2017 Influenza Vaccine (#1) 2024 Lipid Panel 01/19/2025 01/20/2024, 01/12, 10/01/2021, Additional history exists Procedures Procedure Name Priority Date/Time Associated Diagnosis Comments LIPID PANEL Routine 01/20/2024 12:01 PM CDT COMPREHENSIVE METABOLIC PANEL Routine 04/08/2019 7:02 AM OPERATIONS MANAGEMENT TRAINEE Hyperlipidemia LDL goal <70 Cardiomyopathy, ischemic from Last 3 Months or Most Recently Relevant to Health Maintenance Results * Lipid panel (01/20/2024 12:01 PM CDT) SCRIBED Cholesterol, Total 164 <200 EXTERNAL LAB SCRIBED HDL 31 >40 EXTERNAL LAB SCRIBED LDL 77 <100 EXTERNAL LAB SCRIBED Triglycerides 269 <150 EXTERNAL LAB Blood us Historical Provider LAB BLOOD ORDERABLES Edit ed Result - Final EXTERNAL LAB * (ABNORMAL) Comprehensive metabolic panel (04/08/2019 7:02 AM OPERATIONS MANAGEMENT TRAINEE) Glucose 165(H) 65 - 99 mg/dL [facility] [place] Comment: Fasting reference interval For someone without known diabetes, a glucose value >125 mg/dL indicates that they may have diabetes and this should be confirmed with a follow-up test. BUN 26(H) 7 - 25 mg/dL [facility] [place] Creatinine 1.46(H) 0.70 - 1.18 mg/dL [facility] [place] Comment: For patients >49 years of age, the reference limit for Creatinine is approximately 13% higher for people identified as -Malagasy. eGFR NON-AFR. GRENADIAN 47(L) > OR = 60 mL/min/1. 73m2 [facility] [place] EGFR 55(L) > OR = 60 mL/min/1. 73m2 [facility] [place] BUN/creat ratio 18 6 - 22 (calc) [facility] [place] Sodium 142 135 - 146 mmol/L [facility] [place] Potassium, pl 4.0 3.5 - 5.3 mmol/L [facility] [place] Chloride 101 98 - 110 mmol/L [facility] [place] CO2 31 20 - 32 mmol/L [facility] [place] Calcium 9.2 8.6 - 10.3 mg/dL [facility] [place] Protein, sr 7.4 6.1 - 8.1 g/dL [facility] [place] Albumin 4.0 3.6 - 5.1 g/dL [facility] [place] GLOBULIN 3.4 1.9 - 3.7 g/dL (calc) [facility] [place] Alb/glob ratio 1.2 1.0 - 2.5 (calc) [facility] [place] Bilirubin, total 0.5 0.2 - 1.2 mg/dL [facility] [place] Alk phos 71 40 - 115 U/L [facility] [place] AST 37(H) 10 - 35 U/L [facility] [place] ALT (SGPT) 59(H) 9 - 46 U/L [facility] [place] Blood specimen (specimen) 04/08/2019 7:02 AM OPERATIONS MANAGEMENT TRAINEE 04/08/2019 7:03 AM OPERATIONS MANAGEMENT TRAINEE Narrative [facility] - 04/09/2019 1:12 AM OPERATIONS MANAGEMENT TRAINEE FASTING:YES FASTING: YES Resulting Agency Comment Performing Organization Information: Site ID: [id number] Name: [facility] Address: [address] [address] Director: Yogi Cole D.O., MPH us Vijay Franco MD LAB BLOOD ORDERABLES Jayne lund Result [facility] [place] from Last 3 Months or Most Recently Relevant to Health Maintenance Insurance [address] [address] [facility] Care Teams Delicatessen Goods Stock Clerk Relationship Specialty Start Date End Date Dede Gruber MD [address] [facility] [place] [address] PCP - General Family Practice 03/11/24
--- OUTSIDE RECORDS SUMMARY | 2025-02-06 09:12 | XMS_ITS | Encounter Summary ---
Author Organization [facility] Address [address] [facility] [address] [place] [address] Care Team Providers Care Matte Cutter Name Role Phone Skylar Restrepo MD Primary Care Provider +1- [phone] Jaylen Aguilar MD Primary Care Provider +1- [phone] Shreya Kearney MD Primary Care Provider Dede Gruber MD Primary Care Provider Dede Gruber MD Primary Care Provider Encounter Details Date Type Department Care Team (Late st Contact Info) Description 05/14/2016 Orders Only [facility] ProviderLesly MD [address] [place] [address] Social History Tobacco Use Types Packs/Day Years Used Date Smoking Tobacco: Former Cigarettes Q uit: 04/13/2007 Alcohol Use Standard Drinks/Week Comments Yes 0 (1 standard drink = 0.6 oz pur e alcohol) Sex and Gender Information Value Date Recorded Sex Assigned at Not on file 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 Gender Identity Not on file Sexual Orientation [...] on filedocumented in this encounter Care Teams Matte Cutter Relationship Specialty Start Date End Date Skylar Restrepo MD PCP - General 01/18/10 03/25/17 Jaylen Aguilar MD [address] [place] [address] PCP - General Family Practice 03/26/17 02/15/19 Shreya Kearney MD [address] [place] [address] PCP - General Family Medicine 02/16/19 02/27/20 Dede Gruber MD [address] [place] [address] PCP - General Family Practice 02/28/20 03/10/24 Dede Gruber MD [facility] [address] [place], [place] [id number] PCP - General Family Practice 03/11/24 documented as of this encounter
--- OUTSIDE RECORDS SUMMARY | 2025-02-06 09:12 | XMS_ITS | Encounter Summary ---
Author Organization [facility] Address [address] [facility] [address] [place] [address] Care Team Providers Care Fountain Manager Name Role Phone Skylar Restrepo MD Primary Care Provider +1- [phone] Jaylen Aguilar MD Primary Care Provider +1- [phone] Shreya Kearney MD Primary Care Provider Dede Gruber MD Primary Care Provider Dede Gruber MD Primary Care Provider Encounter Details Date Type Department Care Team (Late st Contact Info) Description 04/22/2016 Orders Only [facility] ProviderLesly MD [address] [place] [address] Social History Tobacco Use Types Packs/Day Years Used Date Smoking Tobacco: Former Cigarettes Q uit: 04/13/2007 Alcohol Use Standard Drinks/Week Comments Yes 0 (1 standard drink = 0.6 oz pur e alcohol) Sex and Gender Information Value Date Recorded Sex Assigned at Not on file 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 Gender Identity Not on file Sexual Orientation [...] on filedocumented in this encounter Care Teams Fountain Manager Relationship Specialty Start Date End Date Skylar Restrepo MD PCP - General 01/18/10 03/25/17 Jaylen Aguilar MD [address] [place] [address] PCP - General Family Practice 03/26/17 02/15/19 Shreya Kearney MD [address] [place] [address] PCP - General Family Medicine 02/16/19 02/27/20 Dede Gruber MD [address] [place] [address] PCP - General Family Practice 02/28/20 03/10/24 Dede Gruber MD [facility] [address] [place], [place] [id number] PCP - General Family Practice 03/11/24 documented as of this encounter
--- OUTSIDE RECORDS SUMMARY | 2025-02-06 09:12 | XMS_ITS | Encounter Summary ---
Author Organization [facility] Address [address] [facility] [address] [place] [address] Care Team Providers Care Hospital Ward Clerk Name Role Phone Skylar Restrepo MD Primary Care Provider +1- [phone] Skylar Restrepo MD Primary Care Provider +1- [phone] Jaylen Aguilar MD Primary Care Provider +1- [phone] Shreya Kearney MD Primary Care Provider Dede Gruber MD Primary Care Provider Dede Gruber MD Primary Care Provider Encounter Details Date Type Department Care Team (Late st Contact Info) Description 03/03/2008 Orders Only [facility] Health Information Management [address] [place] [address] Scanning, Provider Social History Tobacco Use Types Packs/Day Years Used Date Smoking Tobacco: Never Assessed Sex and Gender Information Value Date Recorded Sex Assigned at Not on file 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 Gender Identity Not on file Sexual Orientation [...] on filedocumented in this encounter Care Teams Hospital Ward Clerk Relationship Specialty Start Date End Date Skylar Restrepo MD PCP - General 01/18/10 03/25/17 Skylar Restrepo MD PCP - General 03/15/08 01/17/10 Jaylen Aguilar MD [address] [place] [address] PCP - General Family Practice 03/26/17 02/15/19 Shreya Kearney MD [address] [place] [address] PCP - General Family Medicine 02/16/19 02/27/20 Dede Gruber MD [address] [place] [address] PCP - General Family Practice 02/28/20 03/10/24 Dede Gruber MD [address] [place] [address] [place] [address] [place], [place] [id number] PCP - General Family Practice 03/11/24 documented as of this encounter
[2025-02-06 13:15] LABS: Hematocrit 46.7 % (42.0-52.0); Hemoglobin 14.2 g/dL (14.0-18.0); Immature Granulocyte Percent A 0.6 % (0-0.5); Lymphocytes Absolute Auto 1.83 K/mm3 (0.9-3.2); Mean Corpuscular HGB Conc 30.4 g/dl (32-36); Mean Corpuscular Hemoglobin 27.3 pg (26-34); Mean Corpuscular Volume 89.6 fl (80-100); Nucleated Red Blood Cells Absolute Auto 0.000 K/mm3 (0.0-0.012); Nucleated Red Blood Cells Perc 0.0 % (0.0-0.2); Platelet Count Result 234 k/mm3 (150-375); Red Blood Count 5.21 M/mm3 (4.6-6.20); White Blood Count 8.2 K/mm3 (4.5-10.0)
[2025-02-06 13:30] LABS: Alanine Aminotransferase 40 U/L (6-50); Albumin Level 4.2 g/dL (3.5-5.1); Alkaline Phosphatase 57 U/L (38-126); Anion Gap 10 mmol/L (4-12); Aspartate Amino Transferase 41 U/L (17-59); Bilirubin,Total 0.8 mg/dL (0.2-1.3); Blood Urea Nitrogen 39 mg/dL (9-20); Calcium 9.0 mg/dL (8.4-10.2); Carbon Dioxide 29 mmol/L (22-30); Chloride 99 mmol/L (98-107); Cholesterol 136 mg/dL (0-200); Estimated Glomerular Filt Rate 31; Glucose 128 mg/dL (65-110); HDL Direct 30 mg/dL; Potassium 4.2 mmol/L (3.4-5.0); Sodium 138 mmol/L (137-145); Total Protein 7.7 g/dL (6.3-8.2); Triglycerides 235 mg/dL (<150)
[2025-02-06 14:09] LABS: Prostate Specific Antigen 4.7 ng/mL (< OR = 4.0)
[2025-02-06 17:15] LABS: Hemoglobin A1C 6.6 % (<5.7)
== END 2025-02-06 08:44 | disposition home or self-care (01) ==
PROVIDERS: PCP Nurse Practitioner Family; Visit Provider Nurse Practitioner Family
DX: E11.9 Type 2 diabetes mellitus without complications (principal); I10 Essential (primary) hypertension; R97.20 Elevated prostate specific antigen [PSA]; E78.5 Hyperlipidemia, unspecified; Z12.5 Encounter for screening for malignant neoplasm of prostate
CPT/HCPCS: 36415; 80053; 80061; 83036; 84153; 85025